=== PATIENT | female | born 1965 | race African-American/Black ===

== ENCOUNTER 2022-06-06 14:04 | Emergency (ER) | payer OTHER ==
[2022-06-06] MEDS ORDERED: Morphine 10 MG/ML VIAL ONE (14:42)
[2022-06-06] MEDS ORDERED: Dexamethasone 10 MG/ML VIAL ONE (14:42)
[2022-06-06 15:09] LABS: INR-International Normal Ratio 0.9; Prothrombin Time 12.7 sec (12.0-14.7)
[2022-06-06 15:10] LABS: PTT 25.8 sec (22.9-36.1)
[2022-06-06 15:18] LABS: BHCG - Serum Negative (NEGATIVE); Pregs Control Background? CLEAR/WHITE (CLR/WHITE); Pregs Control Bar Appear? YES (CONTROL BAR)
[2022-06-06 15:20] LABS: ALT (SGPT) 19 U/L (8-55); AST (SGOT) 21 U/L (5-34); Albumin 4.6 g/dL (3.5-5.0); Alkaline Phosphatase 87 U/L (40-110); Anion Gap 15 mmol/L (10-20); BUN (Urea Nitrogen) 10 mg/dL (9.8-20.1); Bilirubin, Total 0.3 mg/dL (0.2-1.2); Calc. Creatinine Clearance 0 mL/min (70-130); Calcium 10.6 mg/dL (7.8-10.44); Carbon Dioxide 22 mmol/L (22-29); Chloride 106 mmol/L (98-107); Estimated GFR 63; Globulin 3.9 g/dL (2.4-3.5); Glucose 111 mg/dL (70-105); Potassium 3.4 mmol/L (3.5-5.1); Protein, Total 8.5 g/dL (6.0-8.3); Sodium 140 mmol/L (136-145)
[2022-06-06 15:22] LABS: Hemoglobin 14.8 g/dL (12.0-16.0); Lymphocytes 32 % (21-51); MDiff Complete? YES; Mean Corpuscular HGB CONC 31.1 g/dL (32.0-36.0); Mean Corpuscular Hemoglobin 27.6 pg (27.0-31.0); Mean Corpuscular Volume 88.8 fl (78.0-98.0); Mean Platelet Volume 8.9 fL (7.4-10.4); Metamyelocyte 1 % (0-0); Monocytes 5 % (0-10); Neutrophil 45 % (42-75); Platelet Count 334 10x3/uL (130-400); Platelet Morphology Comment Appears Adequate; RBC Distribution Width 14.4 % (11.5-14.5); RBC Morphology Normal; Reactive Lymphocytes 17 % (0-10); Red Blood Cell (RBC) Count 5.36 mill/uL (4.20-5.40); White Blood Cell (WBC) Count 6.5 10x3/uL (4.8-10.8)
[2022-06-06] MEDS ORDERED: Ondansetron PF 4 MG/2 ML Vial ONE (15:29)
[2022-06-06] MEDS ORDERED: Diazepam 10 MG/2 ML SYRINGE ONE (15:29)
[2022-06-06] MEDS ORDERED: Lactated Ringer's 1,000 ML ONE (15:29)
[2022-06-06] MEDS ORDERED: Potassium Chloride 20 MEQ TAB ONE (15:29)
== END 2022-06-06 16:18 | disposition short-term general hospital (02) ==
LOC: MADERS 14:04
DX: M54.50 Low back pain, unspecified (principal); G89.29 Other chronic pain; E87.6 Hypokalemia; R53.1 Weakness; R20.0 Anesthesia of skin; I10 Essential (primary) hypertension; M10.9 Gout, unspecified; Z79.899 Other long term (current) drug therapy
CPT/HCPCS: 80053; 83605; 84703; 85025; 85610; 85730; 86140; 93005; 94760; 96361; 96374; 96375; J1100; J2270; J2405; J3360; J7120